=== PATIENT | female | born 1980 | race Caucasian/White ===

== ENCOUNTER 2016-03-19 07:48 | Emergency (ER) | payer OTHER ==
[~2016-03-19] VITALS: Ht 170.2 cm; Wt 86.0 kg
[~2016-03-19 07:48] MED LIST: ALBU17I INH
[2016-03-19 07:55] VITALS: BP 121/84; PULSE 63; RESP 16; TEMP 98.4; O2SAT 99
[2016-03-19] MEDS ORDERED: TETANUS/DIPHTHERIA TOXOID ADULT 0.5 ML VIAL IM ONE (08:00)
[2016-03-19] MEDS ORDERED: LIDOCAINE HCL 1% 50 ML VIAL INFIL ONE (08:00)
[2016-03-19] MEDS ORDERED: IBUPROFEN 800 MG TAB PO ONE (08:00)
[2016-03-19] MEDS ORDERED: NAPR250T PO (08:15)
[2016-03-19] MEDS ORDERED: IBUP800T23 PO (08:42)
[2016-03-19] MEDS ORDERED: CEPH-460 PO (08:42)
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
== END 2016-03-19 08:56 | disposition home or self-care (01) ==
LOC: NEPB 07:48
DX: S51.812A Laceration without foreign body of left forearm, initial encounter (principal); Z23 Encounter for immunization; Z87.09 Personal history of other diseases of the respiratory system; W25.XXXA Contact with sharp glass, initial encounter; Y93.89 Activity, other specified; Y99.0 Civilian activity done for income or pay
CPT/HCPCS: 12001; 90471; 90714

== ENCOUNTER 2016-07-05 10:30 | Emergency (ER) | payer OTHER ==
[~2016-07-05] VITALS: Ht 167.6 cm; Wt 84.0 kg
[~2016-07-05 10:30] MED LIST changes: -ALBU17I INH; +CEPH-460 PO; +IBUP800T23 PO; +NAPR250T PO
[2016-07-05 10:32] VITALS: BP 138/80; PULSE 58; RESP 16; TEMP 98.6; O2SAT 98
[2016-07-05] MEDS ORDERED: IBUP800T23 PO (11:00)
[2016-07-05] MEDS ORDERED: IBUPROFEN 800 MG TAB PO ONE (11:00)
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
[2016-07-05 11:45] VITALS: RESP 16
== END 2016-07-05 11:39 | disposition home or self-care (01) ==
LOC: NEPK 10:30
DX: S60.221A Contusion of right hand, initial encounter (principal); S63.616A Unspecified sprain of right little finger, initial encounter; Y04.0XXA Assault by unarmed brawl or fight, initial encounter; Y93.89 Activity, other specified; Y99.0 Civilian activity done for income or pay
CPT/HCPCS: 29130; 73130